=== PATIENT | female | born 1985 | race Caucasian/White ===

== ENCOUNTER 2017-03-19 19:40 | Emergency (ER) | payer OTHER ==
[2017-03-19 19:46] VITALS: BP 116/62; PULSE 117; TEMP 97.6; BMI 31.2
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
[2017-03-19] MEDS ORDERED: CYCLOBENZAPRINE HCL 10 MG TABLET (FP) PO ONE (20:40)
[2017-03-19] MEDS ORDERED: KETOROLAC TROMETHAMINE 60 MG/2 ML VIAL IM ONE (20:40)
== END 2017-03-19 20:51 | disposition home or self-care (01) ==
LOC: JERFT 19:40
PROC: 3E0233Z Introduction of Anti-inflammatory into Muscle, Percutaneous Approach (ICD-10-PCS; principal; 2017-03-19)
DX: S13.4XXA Sprain of ligaments of cervical spine, initial encounter (principal); V43.52XA Car driver injured in collision with other type car in traffic accident, initial encounter; Y92.410 Unspecified street and highway as the place of occurrence of the external cause; Y93.89 Activity, other specified
CPT/HCPCS: 84703; 96372; 99281-25

== ENCOUNTER 2017-05-21 18:12 | Emergency (ER) | payer OTHER ==
[2017-05-21 18:41] VITALS: BP 120/77; PULSE 108; TEMP 98.8; BMI 32.2
[2017-05-21] MEDS ORDERED: SODIUM CHLORIDE 1,000 ML IV STA (19:23)
[2017-05-21] MEDS ORDERED: PANTOPRAZOLE SODIUM 40 MG in SODIUM CHLORIDE 100 ML IVPB ONE (19:23)
[2017-05-21] MEDS ORDERED: ONDANSETRON 4 MG/2 ML VIAL IVPUSH ONE (19:24)
[2017-05-21] MEDS ORDERED: PANTOPRAZOLE SODIUM 100 ML IVPB ONE (19:50)
[2017-05-21] MEDS ORDERED: ONDANSETRON 4 MG/2 ML VIAL ONE (19:50)
[2017-05-21 19:56] LABS: BASOPHIL 0.4 % (0-2.0); EOSINOPHIL 1.3 % (0-4.5); MCH 30.3 pg (25.7-33.7); MCHC 32.9 g/dl (32.0-36.0); MEAN CELL VOLUME 92.1 fl (80-96); MEAN PLT VOLUME 8.1 fl (7.5-11.1); NEUTROPHILS 67.2 % (42.8-82.8); PLATELET COUNT 255 K/MM3 (134-434); RDW 14.1 % (11.6-15.6); WHITE BLOOD COUNT 11.1 K/mm3 (4.0-10.0)
[2017-05-21 20:03] LABS: URINE APPEARANCE CLOUDY; URINE BILIRUBIN NEGATIVE (NEGATIVE); URINE BLOOD NEGATIVE (NEGATIVE); URINE COLOR AMBER; URINE GLUCOSE (UA) NEGATIVE (NEGATIVE); URINE KETONE TRACE (NEGATIVE); URINE LEUK ESTERASE NEGATIVE (NEGATIVE); URINE NITRITE NEGATIVE (NEGATIVE); URINE PROTEIN NEGATIVE (NEGATIVE); URINE UROBILINOGEN NEGATIVE mg/dL (0.2-1.0)
[2017-05-21 20:20] LABS: ALBUMIN 3.4 g/dl (3.4-5.0); AMYLASE 48 U/L (25-115); ANION GAP 6 (8-16); BILIRUBIN,TOTAL 0.3 mg/dL (0.2-1.0); CALCIUM 8.8 mg/dL (8.5-10.1); CO2 28 mmol/L (21-32); CREATININE 0.8 mg/dL (0.55-1.02); GLUCOSE,RANDOM 112 mg/dL (74-106); SGPT/ALT 17 U/L (12-78); TOT PROT 7.3 g/dl (6.4-8.2)
[2017-05-21 20:21] LABS: ALK PHOS 73 U/L (45-117)
[2017-05-21 20:22] LABS: SGOT/AST 15 U/L (15-37)
--- NOTE | 2017-05-21 21:30 | PDOC ---
History of Present Illness - General Chief Complaint: Pain Stated Complaint: NAUSEA/VOMITING/FEVER Time Seen by Provider: 05/21/17 19:04 History Source: Patient Exam Limitations: No Limitations - History of Present Illness Travel History: No Initial Comments: 05/21/17 21:28 31yo Female patient with no significant past medical history presents to ED c/o fever (103.0), n/v, decrease appetite, and LLQ pain that comes and goes. Patient reports symptoms began this morning, she went to work and symptoms have been intermittent. LNMP: April 24. She denies diarrhea, back pain, dysuria, hematuria, constipation, or any other complaints at this time. Timing/Duration: reports: intermittent Quality: reports: mild, cramping Abdominal Pain Onset Location: reports: LLQ. denies: RUQ, LUQ, RLQ, epigastric , periumbilical, suprapubic, generalized abdomen, flank, unknown, other Pain Radiation: denies: no radiation, RUQ, LUQ, RLQ, LLQ, epigastric, periumbilical, flank, groin, scapula, shoulder, chest, back, other Activities at Onset: reports: no specific activity Treatment Prior to Arrive: worse with: analgesics, antacids, cold pack, heat, laxative, enema, other Aggravating Factors: worse with: None, Defecation, Eating, Emotional upset, Exertion, [place], Movement, Voiding, Change in position Alleviating Factors: worse with: None, Belching, Shallow Breathing, Defecation, Eating, Holding Breath, Passing Gas, Change in Position, Rest, Voiding, Vomiting Past History - Travel Traveled outside of the country in the last 30 days: No Close contact w/someone who was outside of country & ill: No - Past Medical History Allergies/Adverse Reactions: Allergies Allergy/AdvReac Type Severity Reaction Status Date / Time No Known Drug Allergies Allergy Verified 05/21/17 18:39 SEAFOOD Allergy Difficulty Uncoded 05/21/17 18:39 Breathing Home Medications: Ambulatory Orders NK [No Known Home Medication] 05/21/17 Anemia: Yes Kidney Stones: Yes Suicide Attempt (Hx): No - Reproductive History Is Patient Now?: No - Immunization History Immunization Up to Date: Yes - Psycho/Social/Smoking Cessation Hx Anxiety: No Suicidal Ideation: No Smoking History: Never smoked Have you smoked in the past 12 months: No Information on smoking cessation initiated: No Hx Alcohol Use: No Drug/Substance Use Hx: No Substance Use Type: None Abd/GI Specific PMHX - Complaint Specific PMHX Colitis: No Diverticulitis: No Gall Bladder Disease: No GERD: No Hepatitis: No Irritable Bowel Synd (IBS): No Pancreatitis: No GI Ulcer Disease: No Review of Systems - Review of Systems Able to Perform ROS?: Yes Is the patient limited [place] proficient: No Constitutional: Yes: Fever. No: Chills ABD/GI: Yes: Nausea, Vomiting, Abdominal cramping, Other (Decreased appetite). No: Constipated, Diarrhea, Poor Appetite, Poor Fluid Intake : No: Dysuria, Hematuria Musculoskeletal: No: Back Pain Integumentary: No: Bruising, Erythema, Rash, Sweating Neurological: No: Headache, Seizure, Ataxia, Dizziness All Other Systems: Reviewed and Negative *Physical Exam - Vital Signs Last Vital Signs Temp Pulse Resp BP Pulse Ox 98.8 F 108 H 18 120/77 96 05/21/17 18:40 05/21/17 18:40 05/21/17 18:40 05/21/17 18:40 05/21/17 18:40 - Physical Exam General Appearance: Yes: Nourished, Appropriately Dressed. No: Apparent Distress, Mild Distress, Moderate Distress, Severe Distress Respiratory/Chest: positive: Lungs Clear, Normal Breath Sounds. negative: Chest Tender, Respiratory Distress, Accessory Muscle Use, Labored Respiration, Rapid RR, Crackles, Rales, Stridor, Wheezing Cardiovascular: positive: Regular Rhythm, Regular Rate Gastrointestinal/Abdominal: positive: Normal Bowel Sounds, Soft. negative: Increased Bowel Sounds, Distended, Guarding, Rebound, Tenderness Musculoskeletal: positive: Normal Inspection. negative: CVA Tenderness, Decreased Range of Motion Extremity: positive: Normal Capillary Refill, Normal Inspection, Normal Range of Motion. negative: Pedal Edema, Swelling, Calf Tenderness, Erythema, Inflammation Integumentary: positive: Normal Color, Dry, Warm. negative: Rash, Swelling, Bruising Neurologic: positive: barrel turner II-XII NML intact, Fully Oriented, Alert, Normal Mood/ Affect, Normal Response, Motor Strength 5/5 ED Treatment Course - LABORATORY CBC & Chemistry Diagram: 05/21/17 19:40 05/21/17 19:40 - ADDITIONAL ORDERS Additional order review: Laboratory Results 05/21/17 05/21/17 05/21/17 20:00 19:42 19:40 Sodium 137 Potassium 3.8 Chloride 103 Carbon Dioxide 28 Anion Gap 6 L BUN 11 Creatinine 0.8 Creat Clearance w eGFR > 60 Random Glucose 112 H D Calcium 8.8 Total Bilirubin 0.3 D AST 15 D ALT 17 Alkaline Phosphatase 73 Total Protein 7.3 Albumin 3.4 Total Amylase 48 Lipase 89 Urine Color Radha Urine Appearance Cloudy Urine pH 5.0 Urine Protein Negative Urine Glucose (UA) Negative Urine Ketones Trace H Urine Blood Negative Urine Nitrite Negative Urine Bilirubin Negative Urine Urobilinogen Negative Ur Leukocyte Esterase Negative Urine HCG, Qual Negative 05/21/17 19:40 RBC 4.64 MCV 92.1 MCHC 32.9 RDW 14.1 MPV 8.1 Neutrophils % 67.2 Lymphocytes % 26.9 Monocytes % 4.2 Eosinophils % 1.3 Basophils % 0.4 - Medications Given in the ED: ED Medications Discontinued Medications Generic Name Dose Route Start Last Admin Trade Name Alvaroq PRN Reason Stop Dose Admin Pantoprazole Sodium 40 mg/ 100 mls @ 200 mls/hr 05/21/17 19:23 05/21/17 19:59 Sodium Chloride IVPB 05/21/17 19:52 200 mls/hr ONCE ONE Administration Sodium Chloride 1,000 mls @ 1,000 mls/hr 05/21/17 19:23 05/21/17 19:59 Normal Saline - IV 05/21/17 20:22 1,000 mls/hr ASDIR STA Administration Ondansetron HCl 4 mg 05/21/17 19:24 05/21/17 19:59 Zofran Injection IVPUSH 05/21/17 19:25 4 mg ONCE ONE Administration Medical Decision Making - Medical Decision Making 05/21/17 21:32 Patient reports she feels much better and would like to go home, she states she has work at 5am. Patient reports improvement in symptoms. Patient teaching done on worsening or change in symptoms to return or go to nearest ED. *DC/Admit/Observation/Transfer Diagnosis at time of Disposition: Nausea & vomiting Qualifiers: Vomiting type: unspecified Vomiting Intractability: non-intractable Qualified Code(s): R11.2 - Nausea with vomiting, unspecified - Discharge Dispostion Disposition: HOME Condition at time of disposition: Improved Admit: No - Patient Instructions Printed Discharge Instructions: DI for Vomiting -- Adult Additional Instructions: FOLLOW UP WITH YOUR PRIMARY CARE PROVIDER THIS WEEK. CALL TO SCHEDULE APPOINTMENT. RETURN IF SYMPTOMS WORSEN OR ANY CONCERNS FOR FURTHER EVALUATION DISCUSSED. Print Language: TURKMEN
== END 2017-05-21 21:47 | disposition home or self-care (01) ==
LOC: JER 18:12
PROC: 3E033GC Introduction of Other Therapeutic Substance into Peripheral Vein, Percutaneous Approach (ICD-10-PCS; principal; 2017-05-21)
PROC: 3E033GC Introduction of Other Therapeutic Substance into Peripheral Vein, Percutaneous Approach (ICD-10-PCS; 2017-05-21)
DX: R11.2 Nausea with vomiting, unspecified (principal)
CPT/HCPCS: 36415; 80053; 81003; 82150; 83690; 84703; 85025; 96365; 96375; 99283-25

== ENCOUNTER 2017-07-05 16:16 | Emergency (ER) | payer SELFPAY ==
[2017-07-05 16:30] VITALS: BP 121/70; PULSE 106; TEMP 98.8; BMI 33.2
--- NOTE | 2017-07-05 17:19 | PDOC ---
History of Present Illness - General History Source: Patient Exam Limitations: No Limitations - History of Present Illness Initial Comments: 07/05/17 17:33 Patient is a 31-year-old female with no past medical history who presents to the emergency department today complaining of lightheadedness, nausea, and vomiting. Patient states that she has been nauseous and vomiting since Monday. She's been unable to keep anything down including water. Today she felt extremely weak because she has not been eating as well due to her nausea. She came to the emergency department for evaluation. Denies abdominal pain, diarrhea , constipation, fevers, chills, frequency, urgency, hematuria and dysuria. LMP <Leena Martinez - Last Filed: 07/05/17 19:38> <Ivy De La Rosa - Last Filed: 07/05/17 23:45> - General Chief Complaint: Lightheaded Stated Complaint: NAUSEA/VOMITING Time Seen by Provider: 07/05/17 17:19 Past History - Travel Traveled outside of the country in the last 30 days: No Close contact w/someone who was outside of country & ill: No - Past Medical History Anemia: Yes Kidney Stones: Yes - Immunization History Immunization Up to Date: Yes - Suicide/Smoking/Psychosocial Hx Smoking History: Never smoked Have you smoked in the past 12 months: No Hx Alcohol Use: No Drug/Substance Use Hx: No Substance Use Type: None <Leena Martinez - Last Filed: 07/05/17 19:38> <Ivy De La Rosa - Last Filed: 07/05/17 23:45> - Past Medical History Allergies/Adverse Reactions: Allergies Allergy/AdvReac Type Severity Reaction Status Date / Time No Known Drug Allergies Allergy Verified 07/05/17 16:30 SEAFOOD Allergy Difficulty Uncoded 07/05/17 16:30 Breathing Home Medications: Ambulatory Orders Meclizine HCl [Antivert -] 25 mg PO TID PRN #21 tablet 07/05/17 Ondansetron [Zofran Odt -] 4 mg SL Q6H PRN #24 od.tablet 07/05/17 Review of Systems - Review of Systems Able to Perform ROS?: Yes Comments:: 07/05/17 17:34 CONSTITUTIONAL: Absent: fever, chills, diaphoresis, generalized weakness, malaise, loss of appetite HEENT: Absent: rhinorrhea, nasal congestion, throat pain, throat swelling, difficulty swallowing, mouth swelling, ear pain, eye pain, visual Changes CARDIOVASCULAR: Absent: chest pain, loss of consciousness, palpitations, irregular heart rate, peripheral edema RESPIRATORY: Absent: cough, shortness of breath, dyspnea with exertion, orthopnea, wheezing, stridor, hemoptysis GASTROINTESTINAL: Present: nausea, vomiting. Absent: abdominal pain, abdominal distension, diarrhea, constipation, melena, hematochezia GENITOURINARY: Absent: dysuria, frequency, urgency, hesitancy, hematuria, flank pain, genital pain MUSCULOSKELETAL: Absent: myalgia, arthralgia, joint swelling SKIN: Absent: rash, itching, pallor HEMATOLOGIC/IMMUNOLOGIC: Absent: easy bleeding, easy bruising, lymphadenopathy, frequent infections ENDOCRINE: Absent: unexplained weight gain, unexplained weight loss, heat intolerance, cold intolerance NEUROLOGIC: Present: Lightheaded Absent: headache, focal weakness or paresthesias, dizziness , unsteady gait, seizure, mental status changes, bladder or bowel incontinence PSYCHIATRIC: Absent: anxiety, depression, suicidal or homicidal ideation, hallucinations. Is the patient limited Icelandic proficient: No <Leena Martinez - Last Filed: 07/05/17 19:38> *Physical Exam - Vital Signs Last Vital Signs Temp Pulse Resp BP Pulse Ox 98.8 F 106 H 20 121/70 99 07/05/17 16:27 07/05/17 16:27 07/05/17 16:27 07/05/17 16:27 07/05/17 16:27 - Physical Exam Comments: 07/05/17 17:35 GENERAL: Well developed, well nourished. Awake and alert. No acute distress. HEENT: Normocephalic, atraumatic. PERRLA, EOMI. No conjunctival pallor. Sclera are non- icteric. Moist mucous membranes. Oropharynx is clear. NECK: Supple. Full ROM. No JVD. Carotid pulses 2+ and symmetric, without bruits. No thyromegaly. No lymphadenopathy. CARDIOVASCULAR: Regular rate and rhythm. No murmurs, rubs, or gallops. Distal pulses are 2+ and symmetric. PULMONARY: No evidence of respiratory distress. Lungs clear to auscultation bilaterally. No wheezing, rales or rhonchi. ABDOMINAL: Soft. Non-tender. Non-distended. No rebound or guarding. No organomegaly. Normoactive bowel sounds. MUSCULOSKELETAL Normal range of motion at all joints. No bony deformities or tenderness. No CVA tenderness. EXTREMITIES: No cyanosis. No clubbing. No edema. No calf tenderness. SKIN: Warm and dry. Normal capillary refill. No rashes. No jaundice. NEUROLOGICAL: Alert, awake, appropriate. Cranial nerves 2-12 intact. No deficits to light touch and temperature in face, upper extremities and lower extremities. No motor deficits in the in face, upper extremities and lower extremities. Normoreflexic in the upper and lower extremities. Normal speech. Toes are down- going bilaterally. Gait is normal without ataxia. PSYCHIATRIC: Cooperative. Good eye contact. Appropriate mood and affect. <Leena Martinez - Last Filed: 07/05/17 19:38> - Vital Signs Last Vital Signs Temp Pulse Resp BP Pulse Ox 98.8 F 106 H 20 121/70 99 07/05/17 16:27 07/05/17 16:27 07/05/17 16:27 07/05/17 16:27 07/05/17 16:27 <Ivy De La Rosa - Last Filed: 07/05/17 23:45> ED Treatment Course - LABORATORY CBC & Chemistry Diagram: 07/05/17 18:15 07/05/17 18:15 <Leena Martinez - Last Filed: 07/05/17 19:38> - LABORATORY CBC & Chemistry Diagram: 07/05/17 18:15 07/05/17 18:15 - ADDITIONAL ORDERS Additional order review: Laboratory Results 07/05/17 07/05/17 07/05/17 19:50 18:15 18:15 PT with INR INR Sodium 138 Potassium 3.7 Chloride 103 Carbon Dioxide 29 Anion Gap 6 L BUN 6 L D Creatinine 0.8 Creat Clearance w eGFR > 60 Random Glucose 86 D Calcium 8.8 Total Bilirubin 0.5 D AST 9 L D ALT 18 Alkaline Phosphatase 87 Total Protein 7.3 Albumin 3.5 Lipase 105 Urine Color Yellow Urine Appearance Slcloudy Urine pH 6.0 Ur Specific [place] 1.020 Urine Protein Negative Urine Glucose (UA) Negative Urine Ketones Negative Urine Blood Negative Urine Nitrite Negative Urine Bilirubin Negative Urine Urobilinogen 2.0 H Urine HCG, Qual Negative 07/05/17 18:15 PT with INR 13.30 H INR 1.20 H Sodium Potassium Chloride Carbon Dioxide Anion Gap BUN Creatinine Creat Clearance w eGFR Random Glucose Calcium Total Bilirubin AST ALT Alkaline Phosphatase Total Protein Albumin Lipase Urine Color Urine Appearance Urine pH Ur Specific [place] Urine Protein Urine Glucose (UA) Urine Ketones Urine Blood Urine Nitrite Urine Bilirubin Urine Urobilinogen Urine HCG, Qual 07/05/17 18:15 RBC 4.64 MCV 91.7 MCHC 33.6 RDW 13.1 MPV 7.8 Neutrophils % 61.1 Lymphocytes % 30.3 Monocytes % 7.0 Eosinophils % 1.0 Basophils % 0.6 - Medications Given in the ED: ED Medications Discontinued Medications Generic Name Dose Route Start Last Admin Trade Name Freq PRN Reason Stop Dose Admin Sodium Chloride 1,000 mls @ 1,000 mls/hr 07/05/17 17:21 07/05/17 18:25 Normal Saline - IV 07/05/17 18:20 1,000 mls/hr ASDIR STA Administration Meclizine HCl 50 mg 07/05/17 21:19 07/05/17 21:34 Antivert - PO 07/05/17 21:20 50 mg ONCE ONE Administration Ondansetron HCl 4 mg 07/05/17 17:21 07/05/17 18:25 Zofran Injection IVPUSH 07/05/17 17:22 4 mg ONCE ONE Administration Ondansetron HCl 4 mg 07/05/17 21:19 07/05/17 21:34 Zofran Injection IVPUSH 07/05/17 21:20 4 mg ONCE ONE Administration <Ivy De La Rosa - Last Filed: 07/05/17 23:45> Medical Decision Making - Medical Decision Making 07/05/17 19:37 Patient is a 31-year-old female with no past medical history who presents to the emergency department today complaining of lightheadedness, nausea, and vomiting. Patient most likely has a viral syndrome and is lightheaded due to her recurrent nausea and vomiting. Neuro exam is normal, Pt. is tachycardic in the 100's, patient is afebrile. Will hydrate and give Zofran for the nausea. Reevaluate 1.CBC, CMP, lipase, PT/INR, UA, UC, urine 2.IV fluids, Zofran 3.reevaluate 07/05/17 18:25 WBC is slightly elevated. Most likely reflexive due to the vomiting. All other labs are within normal limits. 07/05/17 19:00 Fluids her still running at this time patient reports that she is feeling a bit better we will give signout to [facility] SHE[facility] OPERATOR Rj for further evaluation. If she feels better after fluids and her test is normal we'll discharge home <Leena Martinez - Last Filed: 07/05/17 19:38> *DC/Admit/Observation/Transfer <Leena Martinez - Last Filed: 07/05/17 19:38> - Discharge Dispostion Admit: No <Ivy De La Rosa - Last Filed: 07/05/17 23:45> Diagnosis at time of Disposition: Vertigo - Discharge Dispostion Disposition: HOME Condition at time of disposition: Improved - Prescriptions Prescriptions: Meclizine HCl [Antivert -] 25 mg PO TID PRN #21 tablet PRN Reason: Dizziness Ondansetron [Zofran Odt -] 4 mg SL Q6H PRN #24 od.tablet PRN Reason: Nausea - Referrals Referrals: Montez Kitchen MD [Staff Physician] - - Patient Instructions Printed Discharge Instructions: DI for Vertigo Additional Instructions: Follow up with Dr. Kitchen (Neurology) within one week. Call to schedule appointment. Take medications as prescribed. Get rest. Eat and drink plenty fluids. No work x 3 days. Print Language: ARMENIAN - Post Discharge Activity Forms/Work/School Notes: Back to Work
[2017-07-05] MEDS ORDERED: ONDANSETRON 4 MG/2 ML VIAL IVPUSH ONE ×2 (17:21→21:19)
[2017-07-05] MEDS ORDERED: SODIUM CHLORIDE 1,000 ML IV STA ×2 (17:21→23:21)
[2017-07-05] MEDS ORDERED: ONDANSETRON 4 MG/2 ML VIAL ONE ×2 (18:19→21:31)
[2017-07-05 18:23] LABS: BASOPHIL 0.6 % (0-2.0); MCH 30.8 pg (25.7-33.7); MCHC 33.6 g/dl (32.0-36.0); MEAN CELL VOLUME 91.7 fl (80-96); MEAN PLT VOLUME 7.8 fl (7.5-11.1); NEUTROPHILS 61.1 % (42.8-82.8); PLATELET COUNT 257 K/MM3 (134-434); RDW 13.1 % (11.6-15.6); WHITE BLOOD COUNT 10.5 K/mm3 (4.0-10.0)
[2017-07-05 18:39] LABS: INR 1.2 (0.82-1.09); PROTHROMBIN TIME (PATIENT) 13.3 SEC (9.98-11.88)
--- NOTE | 2017-07-05 18:47 | PDOC ---
*Physical Exam - Vital Signs Last Vital Signs Temp Pulse Resp BP Pulse Ox 98.8 F 106 H 20 121/70 99 07/05/17 16:27 07/05/17 16:27 07/05/17 16:27 07/05/17 16:27 07/05/17 16:27 - Physical Exam Comments: 07/05/17 18:47 The patient was examined by [MEGAN Martinez] under my direct supervision. I personally evaluated the patient. I concur with the above findings and the plan of care. ED Treatment Course - LABORATORY CBC & Chemistry Diagram: 07/05/17 18:15 07/05/17 18:15 - ADDITIONAL ORDERS Additional order review: 07/05/17 18:15 RBC 4.64 MCV 91.7 MCHC 33.6 RDW 13.1 MPV 7.8 Neutrophils % 61.1 Lymphocytes % 30.3 Monocytes % 7.0 Eosinophils % 1.0 Basophils % 0.6 - Medications Given in the ED: ED Medications Discontinued Medications Generic Name Dose Route Start Last Admin Trade Name Freq PRN Reason Stop Dose Admin Sodium Chloride 1,000 mls @ 1,000 mls/hr 07/05/17 17:21 07/05/17 18:25 Normal Saline - IV 07/05/17 18:20 1,000 mls/hr ASDIR STA Administration Ondansetron HCl 4 mg 07/05/17 17:21 07/05/17 18:25 Zofran Injection IVPUSH 07/05/17 17:22 4 mg ONCE ONE Administration *DC/Admit/Observation/Transfer Diagnosis at time of Disposition: Vertigo - Discharge Dispostion Disposition: HOME - Prescriptions Prescriptions: Meclizine HCl [Antivert -] 25 mg PO TID PRN #21 tablet PRN Reason: Dizziness Ondansetron [Zofran Odt -] 4 mg SL Q6H PRN #24 od.tablet PRN Reason: Nausea - Referrals Referrals: Montez Kitchen MD [Staff Physician] - - Patient Instructions Printed Discharge Instructions: DI for Vertigo Additional Instructions: Follow up with Dr. Kitchen (Neurology) within one week. Call to schedule appointment. Take medications as prescribed. Get rest. Eat and drink plenty fluids. No work x 3 days. Print Language: KUWAITI - Post Discharge Activity Forms/Work/School Notes: Back to Work
[2017-07-05 18:55] LABS: ALBUMIN 3.5 g/dl (3.4-5.0); ANION GAP 6 (8-16); BILIRUBIN,TOTAL 0.5 mg/dL (0.2-1.0); CALCIUM 8.8 mg/dL (8.5-10.1); CO2 29 mmol/L (21-32); CREATININE 0.8 mg/dL (0.55-1.02); GLUCOSE,RANDOM 86 mg/dL (74-106); SGOT/AST 9 U/L (15-37); SGPT/ALT 18 U/L (12-78); TOT PROT 7.3 g/dl (6.4-8.2)
[2017-07-05 18:56] LABS: ALK PHOS 87 U/L (45-117)
[2017-07-05 20:00] LABS: URINE APPEARANCE SLCLOUDY; URINE BILIRUBIN NEGATIVE (NEGATIVE); URINE BLOOD NEGATIVE (NEGATIVE); URINE COLOR YELLOW; URINE GLUCOSE (UA) NEGATIVE (NEGATIVE); URINE KETONE NEGATIVE (NEGATIVE); URINE LEUK ESTERASE NEGATIVE (NEGATIVE); URINE NITRITE NEGATIVE (NEGATIVE); URINE PROTEIN NEGATIVE (NEGATIVE)
[2017-07-05] MEDS ORDERED: MECLIZINE HCL 25 MG TABLET (FP) PO ONE (21:19)
[2017-07-05] MEDS ORDERED: MECLIZINE HCL 25 MG TABLET (FP) ONE (21:30)
[2017-07-05] MEDS ORDERED: METOCLOPRAMIDE HCL INJECTION 10 MG/2 ML VIAL IVPB ONE (23:22)
== END 2017-07-06 00:01 | disposition home or self-care (01) ==
LOC: JER 16:16
PROC: 3E033TZ Introduction of Destructive Agent into Peripheral Vein, Percutaneous Approach (ICD-10-PCS; principal; 2017-07-05)
PROC: 3E033GC Introduction of Other Therapeutic Substance into Peripheral Vein, Percutaneous Approach (ICD-10-PCS; 2017-07-05)
DX: R11.2 Nausea with vomiting, unspecified (principal)
CPT/HCPCS: 36415; 80053; 81003; 83690; 84703; 85025; 85610; 87086; 87186; 99281-25

== ENCOUNTER 2018-05-24 18:44 | Emergency (ER) | payer SELFPAY ==
[2018-05-24 18:53] VITALS: BP 105/60; PULSE 107; TEMP 98.3; BMI 32.2
--- NOTE | 2018-05-24 20:07 | PDOC ---
Attending Attestation - HPI HPI: 05/24/18 20:45 Patient is a 32 year old female with no significant past medical history who presents to the ED with complaints of a syncopal episode that occurred earlier today. Patient reports sitting at home when she suddenly began to experience increased warmth as well as associated decreased hearing stating her hearing faded before losing consciousness. She reports not coming to the ED after regaining consciousness due to experiencing general body weakness. Patient reported symptoms returning this evening, prompting her to come into the ED for further evaluation. Denies chest pain, Sob. Denies chills. Denies head trauma, vision changes. Denies contact with sick individuals out of state travelling. Denies dysuria, hematuria. Denies diarrhea, constipation. Denies any other symptoms. Allergies: Seafood. Social history: No smoking. No alcohol. No illicit drugs. Surgical history: None PMD: None <Víctor Roque - Last Filed: 05/24/18 20:45> - Resident Resident Name: Devorah Camacho - ED Attending Attestation I have performed the following: I have examined & evaluated the patient, The case was reviewed & discussed with the resident, I agree w/resident's findings & plan, Exceptions are as noted - Physicial Exam PE: GENERAL: Awake, alert, and fully oriented, in no acute distress HEAD: No signs of trauma EYES: PERRLA, EOMI, sclera anicteric, conjunctiva clear ENT: Auricles normal inspection, hearing grossly normal, nares patent, oropharynx clear without exudates. Moist mucosa NECK: Normal ROM, supple, no lymphadenopathy, JVD, or masses LUNGS: Breath sounds equal, clear to auscultation bilaterally. No wheezes, and no crackles HEART: Regular rate and rhythm, normal S1 and S2, no murmurs, rubs or gallops ABDOMEN: Soft, nontender, normoactive bowel sounds. No guarding, no rebound. No masses EXTREMITIES: Normal range of motion, no edema. No clubbing or cyanosis. No cords, erythema, or tenderness NEUROLOGICAL: Cranial nerves II through XII grossly intact. Normal speech, normal gait SKIN: Warm, Dry, normal turgor, no rashes or lesions noted. - Medical Decision Making Pt with syncopal event, then a near syncopal event afterwards. Both occurred unprovoked (not upset, not lightheaded). Noted to have tachycardia on arrival in ED and c/o chest pain earlier today. Will work up for poss PE. <Margie Goff - Last Filed: 05/25/18 01:39>
--- NOTE | 2018-05-24 20:15 | PDOC ---
History of Present Illness - General History Source: Patient Exam Limitations: No Limitations - History of Present Illness Initial Comments: 05/24/18 20:05 Pt is a 32yo f with pmh of anemia presenting to ED because of a syncopal episode. Pt said around 2pm today, she was watching TV when she started to "get hot, sounds were distant" and started experiencing tunnel vision. Pt said the episode was witnessed by her father who said she was unconscious for "a couple minutes". According to pt, no one told her she was having a seizure and she did not lose control of bowel/bladder. She did say that she was confused when she came to. Pt says she has been feeling stressed lately. She admits to feeling anxious, dizzy, feeling nauseous, short of breath, chest pain due to anxiety. Pt says for the past couple of days she hasn't been eating anything and she has been throwing up. She denies blood in the vomit. Pt says she recently came back from [place] which is about a [address] She denies fever, chills, numbness, tingling, abdominal pain, vaginal bleeding, vaginal discharge, dysuria , diarrhea, constipation. Pt was taking Depo shot but has stopped. Last dose was in January. PMH: anemia PSH: lithotripsy Meds: none Allergies: seafood Social: denies tobacco, alcohol, illicit drug use 05/24/18 20:15 <Devorah Camacho - Last Filed: 05/24/18 20:05> <Margie Goff - Last Filed: 05/24/18 23:45> - General Chief Complaint: Syncope/Near Syncope Stated Complaint: SYNCOPE/NEAR SYNCOPE Time Seen by Provider: 05/24/18 19:43 Past History - Past Medical History Anemia: Yes COPD: No Kidney Stones: Yes - Immunization History Immunization Up to Date: Yes - Suicide/Smoking/Psychosocial Hx Smoking History: Never smoked Have you smoked in the past 12 months: No Information on smoking cessation initiated: No Hx Alcohol Use: No Drug/Substance Use Hx: No Substance Use Type: None <Devorah Camacho - Last Filed: 05/24/18 20:05> <Margie Goff - Last Filed: 05/24/18 23:45> - Past Medical History Allergies/Adverse Reactions: Allergies Allergy/AdvReac Type Severity Reaction Status Date / Time No Known Drug Allergies Allergy Verified 05/24/18 18:46 SEAFOOD Allergy Difficulty Uncoded 05/24/18 18:46 Breathing Home Medications: Ambulatory Orders NK [No Known Home Medication] 05/24/18 *Physical Exam - Vital Signs Last Vital Signs Temp Pulse Resp BP Pulse Ox 98.3 F 107 H 18 105/60 100 05/24/18 18:48 05/24/18 18:48 05/24/18 18:48 05/24/18 18:48 05/24/18 18:48 <Devorah Camacho - Last Filed: 05/24/18 20:05> - Vital Signs Last Vital Signs Temp Pulse Resp BP Pulse Ox 98.3 F 107 H 18 105/60 100 05/24/18 18:48 05/24/18 18:48 05/24/18 18:48 05/24/18 18:48 05/24/18 18:48 <Margie Goff - Last Filed: 05/24/18 23:45> ED Treatment Course - LABORATORY CBC & Chemistry Diagram: 05/24/18 20:45 05/24/18 20:45 - ADDITIONAL ORDERS Additional order review: Laboratory Results 05/24/18 05/24/18 05/24/18 20:45 20:45 20:15 Sodium 144 Potassium 3.8 Chloride 109 H Carbon Dioxide 26 Anion Gap 9 BUN 12 Creatinine 0.8 Creat Clearance w eGFR > 60 Random Glucose 75 Calcium 8.7 Total Bilirubin 0.2 AST 14 L ALT 23 Alkaline Phosphatase 72 Troponin I < 0.02 Total Protein 7.3 Albumin 3.6 Urine HCG, Qual Negative 05/24/18 20:45 RBC 4.37 MCV 90.4 MCHC 33.9 RDW 13.0 MPV 8.1 Neutrophils % 55.2 Lymphocytes % 35.4 Monocytes % 7.9 Eosinophils % 1.1 Basophils % 0.4 - Medications Given in the ED: ED Medications Discontinued Medications Generic Name Dose Route Start Last Admin Trade Name Freq PRN Reason Stop Dose Admin Sodium Chloride 1,000 mls @ 1,000 mls/hr 05/24/18 20:59 05/24/18 21:08 Normal Saline - IV 05/24/18 21:58 1,000 mls/hr ASDIR STA Administration Ondansetron HCl 4 mg 05/24/18 20:59 05/24/18 21:08 Zofran Injection IVPB 05/24/18 21:00 4 mg ONCE ONE Administration <Margie Goff - Last Filed: 05/24/18 23:45> *DC/Admit/Observation/Transfer <Devorah Camacho - Last Filed: 05/24/18 20:05> - Discharge Dispostion Decision to Admit order: No <Margie Goff - Last Filed: 05/24/18 23:45> Diagnosis at time of Disposition: Syncope Qualifiers: Syncope type: unspecified Qualified Code(s): R55 - Syncope and collapse - Discharge Dispostion Disposition: HOME Condition at time of disposition: Stable
[2018-05-24 20:58] LABS: BASO % 0.4 % (0-2.0); EOS % 1.1 % (0-4.5); HEMATOCRIT 39.5 % (32.4-45.2); HEMOGLOBIN 13.4 GM/dL (10.7-15.3); LYMPH % 35.4 % (8-40); MCH 30.7 pg (25.7-33.7); MCHC 33.9 g/dl (32.0-36.0); MEAN CELL VOLUME 90.4 fl (80-96); MEAN PLT VOLUME 8.1 fl (7.5-11.1); MONO % 7.9 % (3.8-10.2); NEUT % 55.2 % (42.8-82.8); PLATELET COUNT 238 K/MM3 (134-434); RBC 4.37 M/mm3 (3.60-5.2); WHITE BLOOD COUNT 10.1 K/mm3 (4.0-10.0)
[2018-05-24] MEDS ORDERED: SODIUM CHLORIDE 1,000 ML IV STA (20:59)
[2018-05-24] MEDS ORDERED: ONDANSETRON 4 MG/2 ML VIAL IVPB ONE (20:59)
[2018-05-24] MEDS ORDERED: ONDANSETRON 4 MG/2 ML VIAL ONE (21:03)
[2018-05-24 21:20] LABS: ALBUMIN 3.6 g/dl (3.4-5.0); ALK PHOS 72 U/L (45-117); ANION GAP 9 MMOL/L (8-16); BILIRUBIN,TOTAL 0.2 mg/dL (0.2-1.0); BLOOD UREA NITROGEN 12 mg/dL (7-18); CALCIUM 8.7 mg/dL (8.5-10.1); CHLORIDE 109 mmol/L (98-107); CO2 26 mmol/L (21-32); CREATININE 0.8 mg/dL (0.55-1.02); GLUCOSE,RANDOM 75 mg/dL (74-106); SGPT/ALT 23 U/L (12-78); SODIUM 144 mmol/L (136-145); TOT PROT 7.3 g/dl (6.4-8.2)
[2018-05-24 21:26] LABS: POTASSIUM 3.8 mmol/L (3.5-5.1); SGOT/AST 14 U/L (15-37)
--- NOTE | 2018-05-25 12:02 | EKG ---
Test Reason : Blood Pressure : / mmHG Vent. Rate : 071 BPM Atrial Rate : 071 BPM P-R Int : 124 ms QRS Dur : 070 ms QT Int : 372 ms P-R-T Axes : 037 024 026 degrees QTc Int : 404 ms NORMAL SINUS RHYTHM NORMAL ECG WHEN COMPARED WITH ECG OF 04-APR-2015 16:59, NO SIGNIFICANT CHANGE WAS FOUND Confirmed by PRASANNA JANSEN MD ([id number]) on 05/25/2018 12:01:47 PM Referred By: Confirmed By:PRASANNA JANSEN MD
== END 2018-05-24 23:49 | disposition home or self-care (01) ==
LOC: JER 18:44
PROC: 3E033GC Introduction of Other Therapeutic Substance into Peripheral Vein, Percutaneous Approach (ICD-10-PCS; principal; 2018-05-24)
DX: R55 Syncope and collapse (principal)
CPT/HCPCS: 36415; 71275-TC; 80053; 84484; 84703; 85025; 93005; 93010; 99283-25; J7030

== ENCOUNTER 2018-10-29 19:48 | Emergency (ER) | payer SELFPAY ==
[2018-10-29 19:54] VITALS: BP 116/55; PULSE 75; TEMP 98.4; BMI 31.2
--- NOTE | 2018-10-29 19:54 | PDOC ---
Rapid Medical Evaluation Chief Complaint: Cold Symptoms Time Seen by Provider: 10/29/18 19:51 Medical Evaluation: Allergies Allergy/AdvReac Type Severity Reaction Status Date / Time No Known Drug Allergies Allergy Verified 05/24/18 18:46 SEAFOOD Allergy Difficulty Uncoded 05/24/18 18:46 Breathing 10/29/18 19:51 I have performed a brief in-person evaluation of the patient. The patient presents with a chief complaint of: nausea, bodyaches and headache today. Reports vomiting x 5 times today Denies fever or chills Pertinent physical exam findings. NAD clear and unlabored breathing +bowel sounds, non tender abdomen I have ordered the following. urine , urinalysis The patient will proceed to the ED for further evaluation.
[2018-10-29 20:10] LABS: URINE APPEARANCE SLCLOUDY; URINE BILIRUBIN NEGATIVE (<2.0 mg/dL); URINE COLOR YELLOW; URINE GLUCOSE (UA) NEGATIVE (NEGATIVE); URINE KETONE TRACE (NEGATIVE); URINE LEUK ESTERASE 1+ (NEGATIVE); URINE NITRITE NEGATIVE (NEGATIVE); URINE PROTEIN 1+ (NEGATIVE)
[2018-10-29 20:12] LABS: HCG,QUALITATIVE URINE Negative
[2018-10-29 20:31] LABS: EPI CELLS MODERATE /HPF (FEW); URINE MUCUS MODERATE
--- NOTE | 2018-10-29 20:37 | PDOC ---
History of Present Illness - General Chief Complaint: Cold Symptoms Stated Complaint: FLU SYX Time Seen by Provider: 10/29/18 19:51 - History of Present Illness Initial Comments: 10/29/18 20:36 32-year-old female without comorbidities presents for evaluation of subjective fever chills night sweats bodyaches and Past History - Past Medical History Allergies/Adverse Reactions: Allergies Allergy/AdvReac Type Severity Reaction Status Date / Time No Known Drug Allergies Allergy Verified 10/29/18 19:54 SEAFOOD Allergy Difficulty Uncoded 10/29/18 19:54 Breathing Home Medications: Ambulatory Orders Nitrofurantoin Monohyd/M-Cryst [Macrobid -] 100 mg PO BID #14 capsule 10/29/18 Anemia: Yes COPD: No Kidney Stones: Yes - Immunization History Immunization Up to Date: Yes - Suicide/Smoking/Psychosocial Hx Smoking History: Never smoked Have you smoked in the past 12 months: No Information on smoking cessation initiated: No Hx Alcohol Use: No Drug/Substance Use Hx: No Substance Use Type: None Review of Systems - Review of Systems Constitutional: Yes: See HPI, Chills, Diaphoresis, Fever, Malaise, Night Sweats HEENTM: Yes: Nose Congestion *Physical Exam - Vital Signs Last Vital Signs Temp Pulse Resp BP Pulse Ox 98.4 F 75 16 116/55 L 100 10/29/18 19:50 10/29/18 19:50 10/29/18 19:50 10/29/18 19:50 10/29/18 19:50 - Physical Exam Comments: 10/29/18 20:36 HEAD: NC/AT EYES: Conjuntiva clear Ears: Canals and TM's normal NOSE: No d/c THROAT: Moist mucous membrances, oral pharanx clear, uvula midline NECK: Supple without adenopathy CARDIAC: S1 S2 LUNGS: CTA Full and Equal breath sounds ABDOMEN: Soft NT ND MS: Full ROM in all joints without edema NEUROLOGIC: No gross sensory or motor deficits, NVID SKIN: Normal color and temperature no lesions or rashes Moderate Sedation - Procedure Monitoring Vital Signs: Procedure Monitoring Vital Signs Temperature 98.4 F 10/29/18 19:50 Pulse Rate 75 10/29/18 19:50 Respiratory Rate 16 10/29/18 19:50 Blood Pressure 116/55 L 10/29/18 19:50 O2 Sat by Pulse Oximetry (%) 100 10/29/18 19:50 ED Treatment Course - ADDITIONAL ORDERS Additional order review: Laboratory Results 10/29/18 19:58 Urine Color Yellow Urine Appearance Slcloudy Urine pH 5.0 Ur Specific [place] 1.030 Urine Protein 1+ H Urine Glucose (UA) Negative Urine Ketones Trace H Urine Blood Negative Urine Nitrite Negative Urine Bilirubin Negative Urine Urobilinogen 2.0 H Ur Leukocyte Esterase 1+ H Urine WBC (Auto) 19 Urine RBC (Auto) 1 Ur Epithelial Cells Moderate Urine Mucus Moderate Urine HCG, Qual Negative Medical Decision Making - Medical Decision Making 10/29/18 21:14 flu negative + UTI *DC/Admit/Observation/Transfer Diagnosis at time of Disposition: Urinary tract infection, Upper respiratory infection - Discharge Dispostion Disposition: HOME Condition at time of disposition: Decision to Admit order: No - Referrals Referrals: Adarsh Chaudhary [Non Staff, Medical] - - Patient Instructions Printed Discharge Instructions: DI for Viral Upper Respiratory Infection -- Adult, Urinary Tract Infection, DI for Urinary Tract Infection (UTI) Additional Instructions: Follow-up with your primary care physician one to 2 days for further evaluation and treatment options. Return to the emergency room should symptoms worsen or go unresolved. Follow-up in the emergency room should you have any further issues or concerns. Please take the antibiotics as directed for the urinary tract infection. Her flu was negative today. - Post Discharge Activity
== END 2018-10-29 21:24 | disposition left against medical advice (07) ==
LOC: JERFT 19:48
DX: N39.0 Urinary tract infection, site not specified (principal); J06.9 Acute upper respiratory infection, unspecified
CPT/HCPCS: 81003; 81015; 84703; 87086; 87804; 99281-25

== ENCOUNTER → 2019-01-15 | Emergency (ER) | payer OTHER ==
[2019-01-15 23:32] VITALS: BP 114/68; PULSE 100; TEMP 98.4; BMI 34.2
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
--- NOTE | 2019-01-15 23:59 | PDOC ---
Attending Attestation - Resident Resident Name: Myles Zuniga - ED Attending Attestation I have performed the following: I have examined & evaluated the patient, The case was reviewed & discussed with the resident, I agree w/resident's findings & plan, Exceptions are as noted
== END | disposition left against medical advice (07) ==
LOC: JER 23:28
DX: Z53.21 Procedure and treatment not carried out due to patient leaving prior to being seen by health care provider (principal)
CPT/HCPCS: 99281-25

== ENCOUNTER 2019-04-24 19:59 | Emergency (ER) | payer SELFPAY ==
[2019-04-24 20:32] VITALS: BP 112/72; PULSE 114; TEMP 99; BMI 32.0
== END 2019-04-24 20:20 | disposition left against medical advice (07) ==
LOC: JER 19:59
DX: Z53.21 Procedure and treatment not carried out due to patient leaving prior to being seen by health care provider (principal)
CPT/HCPCS: 99281-25

== ENCOUNTER 2019-07-18 14:46 | Emergency (ER) | payer SELFPAY ==
[2019-07-18 15:09] VITALS: TEMP 99.1; BMI 77.5
--- NOTE | 2019-07-18 15:09 | PDOC ---
Rapid Medical Evaluation Time Seen by Provider: 07/18/19 15:06 Medical Evaluation: Allergies Allergy/AdvReac Type Severity Reaction Status Date / Time No Known Drug Allergies Allergy Verified 04/24/19 20:28 SEAFOOD Allergy Difficulty Uncoded 04/24/19 20:28 Breathing 07/18/19 15:07 I have performed a brief in-person evaluation of this patient. The patient presents with a chief complaint of: acute onset vomiting 10-15 times since 10 am today, denies fever/diarrhea. LMP 06/14 Pertinent physical exam findings: LLQ tenderness I have ordered the following: labs, urine The patient will proceed to the ED for further evaluation. Discharge Disposition - Diagnosis Vomiting - Referrals - Patient Instructions - Post Discharge Activity
[2019-07-18 15:47] LABS: EPI CELLS 9.6 /HPF (0-5/HPF); HYALINE CASTS 3 /lpf (0-8); URINE APPEARANCE CLEAR; URINE BACTERIA 311.8 /hpf (NEGATIVE); URINE BILIRUBIN NEGATIVE (NEGATIVE); URINE COLOR YELLOW; URINE GLUCOSE (UA) NEGATIVE (NEGATIVE); URINE KETONE NEGATIVE (NEGATIVE); URINE LEUK ESTERASE TRACE (NEGATIVE); URINE NITRITE NEGATIVE (NEGATIVE); URINE PROTEIN NEGATIVE (NEGATIVE); URINE RBC 1 /hpf (0-4); URINE UROBILINOGEN 0.2 mg/dL (0.2-1.0); URINE WBC 5 /hpf (0-5)
[2019-07-18 16:08] LABS: ALBUMIN 3.5 g/dl (3.4-5.0); BILIRUBIN,TOTAL 0.2 mg/dL (0.2-1); BLOOD UREA NITROGEN 8.1 mg/dL (7-18); CALCIUM 9.1 mg/dL (8.5-10.1); CREATININE 0.7 mg/dL (0.55-1.3); TOT PROT 7.3 g/dl (6.4-8.2)
[2019-07-18] MEDS ORDERED: SODIUM CHLORIDE 1,000 ML IV STA (16:37)
[2019-07-18] MEDS ORDERED: ACETAMINOPHEN 1000 MG/100 ML VIAL (NON FORMULARY) IVPB ONE (16:37)
[2019-07-18] MEDS ORDERED: ONDANSETRON 4 MG/2 ML VIAL IVPUSH ONE (16:37)
[2019-07-18 16:46] LABS: BASO % 0.4 % (0-2.0); EOS % 0.6 % (0-4.5); HEMATOCRIT 42.8 % (32.4-45.2); LYMPH % 20.9 % (8-40); MCH 30.4 pg (25.7-33.7); MCHC 32.8 g/dl (32.0-36.0); MEAN CELL VOLUME 92.9 fl (80-96); MEAN PLT VOLUME 8.7 fl (7.5-11.1); MONO % 5.1 % (3.8-10.2); PLATELET COUNT 259 K/MM3 (134-434); RDW 13.5 % (11.6-15.6); WHITE BLOOD COUNT 13.2 K/mm3 (4.0-10.0)
[2019-07-18] MEDS ORDERED: ACETAMINOPHEN INJECTION 100 ML IVPB ONE (17:12)
[2019-07-18] MEDS ORDERED: ONDANSETRON 4 MG/2 ML VIAL ONE (17:13)
--- NOTE | 2019-07-18 17:26 | PDOC ---
History of Present Illness - General Chief Complaint: Nausea/Vomiting Stated Complaint: VOMITING Time Seen by Provider: 07/18/19 15:06 History Source: Patient Exam Limitations: No Limitations Past History - Past Medical History Allergies/Adverse Reactions: Allergies Allergy/AdvReac Type Severity Reaction Status Date / Time No Known Drug Allergies Allergy Verified 04/24/19 20:28 SEAFOOD Allergy Difficulty Uncoded 04/24/19 20:28 Breathing Home Medications: Ambulatory Orders Nitrofurantoin Monohyd/M-Cryst [Macrobid -] 100 mg PO BID #14 capsule 10/29/18 Cephalexin Monohydrate [Keflex -] 500 mg PO BID #14 capsule 07/18/19 Anemia: Yes COPD: No Kidney Stones: Yes - Immunization History Immunization Up to Date: Yes - Psycho Social/Smoking Cessation Hx Smoking History: Never smoked Have you smoked in the past 12 months: No Information on smoking cessation initiated: No Hx Alcohol Use: No Drug/Substance Use Hx: No Substance Use Type: None *Physical Exam - Vital Signs Last Vital Signs Temp Pulse Resp BP Pulse Ox 99.1 F 102 H 18 169/73 98 07/18/19 15:07 07/18/19 15:07 07/18/19 15:07 07/18/19 15:07 07/18/19 15:07 - Physical Exam General Appearance: No: Apparent Distress Respiratory/Chest: positive: Lungs Clear, Normal Breath Sounds. negative: Respiratory Distress Cardiovascular: positive: Regular Rhythm, Regular Rate, S1, S2. negative: Murmur Gastrointestinal/Abdominal: positive: Normal Bowel Sounds, Soft. negative: Tender, Distended, Guarding, Rebound Musculoskeletal: negative: CVA Tenderness, Muscle Spasm, Vertebral Tenderness Extremity: negative: Pedal Edema, Swelling, Calf Tenderness Integumentary: positive: Normal Color. negative: Swelling, Ecchymosis, Bruising Neurologic: positive: nut former II-XII NML intact, Fully Oriented, Alert, Normal Mood/ Affect, Other (strength exam limited as patient with pain on movement of R leg ( particularly with flexion of knee), able to ambulate). negative: Facial Droop, Confused, Disoriented ED Treatment Course - LABORATORY CBC & Chemistry Diagram: 07/18/19 15:25 07/18/19 15:25 - ADDITIONAL ORDERS Additional order review: Laboratory Results 07/18/19 07/18/19 07/18/19 15:25 15:25 15:25 Sodium 138 Potassium 4.0 Chloride 103 Carbon Dioxide 25 Anion Gap 10 BUN 8.1 Creatinine 0.7 Est GFR (CKD-EPI)AfAm 133.81 Est GFR (CKD-EPI)NonAf 115.45 Random Glucose 84 Calcium 9.1 Total Bilirubin 0.2 AST 12 L ALT 18 Alkaline Phosphatase 71 Total Protein 7.3 Albumin 3.5 Lipase 80 Urine Color Yellow Urine Appearance Clear Urine pH 6.0 Ur Specific [place] 1.021 Urine Protein Negative Urine Glucose (UA) Negative Urine Ketones Negative Urine Blood Negative Urine Nitrite Negative Urine Bilirubin Negative Urine Urobilinogen 0.2 Ur Leukocyte Esterase Trace Urine WBC (Auto) 5 Urine RBC (Auto) 1 Urine Casts (Auto) 3 U Epithel Cells (Auto) 9.6 Urine Bacteria (Auto) 311.8 Urine HCG, Qual Positive 07/18/19 15:25 RBC 4.60 MCV 92.9 MCHC 32.8 RDW 13.5 MPV 8.7 Neutrophils % 73.0 D Lymphocytes % 20.9 D Monocytes % 5.1 Eosinophils % 0.6 Basophils % 0.4 - RADIOLOGY Radiology Studies Ordered: Category Date Time Status TRANSVAGINAL US PREG [US] Stat Ultrasound 07/18/19 16:37 Ordered Medical Decision Making - Medical Decision Making 33 y/o F with hx of kidney stones s/p lithotripsy 3 years ago presents with L sided abdominal pain from this morning along with 15 episodes of NBNB emesis. Also mentions having RLE pain and heaviness; sxs are through the whole leg and start from the thigh and go down to all the toes. Denies trauma. Works as bus assistant. Denies fever, sob, cp, diarrhea, urinary complaints, vaginal bleeding, bowel/bladder incontinence, saddle/groin parethesia. LNMP Jun 11 (patient not sure of exact date); has regular menstrual cycles UCG positive Patient found to be R/o ectopic Plan: Labs, TVUS, IVF, Zofran, Tylenol, reassess Unclear cause of RLE heaviness Not suspicious for DVT, cauda equina, stroke, sciatica Will reassess after meds and TVUS 07/18/19 17:23 Ultrasound shows evidence of IUP at 7 weeks heart rate was noted Small subchorionic hemorrhage also noted Patient reexamined regarding right lower extremity Again no suspicion for DVT, stroke, sciatica Patient with no weakness of right lower extremity Patient endorses feeling tightness in her hamstring muscles when she flexes her knee Likely could be musculoskeletal pain Results of urine discussed with Dr. Quinteros, recommended for antibiotics given bacteruria and Will refer patient to GEOGRAPH[facility]FORMATION SYSTEMS ENGINEER for continued monitoring of her 07/18/19 19:13 Discharge - Discharge Information Problems reviewed: Yes Clinical Impression/Diagnosis: Qualifiers: Weeks of gestation: less than 8 weeks Qualified Code(s): Z3A.01 - Less than 8 weeks gestation of Condition: Improved Disposition: HOME - Admission No - Additional Discharge Information Prescriptions: Cephalexin Monohydrate [Keflex -] 500 mg PO BID #14 capsule Prescription Drug Monitoring Program (I-STOP) results: I-STOP not reviewed - Follow up/Referral Referrals: Delma Solomon MD [Staff Physician] - 2 Days - Patient Discharge Instructions Patient Printed Discharge Instructions: Managing Symptoms of Additional Instructions: Thank you for choosing [facility]. It was a pleasure taking care of you. Your ultrasound shows that you are currently at 7 weeks You also have evidence of a small subchorionic bleed Please follow-up with the OB doctor for continued monitoring regarding this You are also started on antibiotics for possible urine infection If your urine culture is negative you will get a call back Please start taking vitamins Recommend taking Tylenol as needed for tightness in right hamstring muscles and stretching Return to the Emergency Department if your symptoms worsen or persist, you have fever, shortness of breath, chest pain, severe abdominal pain, vomiting, vaginal bleeding, calf pain, leg swelling, unable to walk or other concerning symptoms. - Post Discharge Activity
[2019-07-18 18:56] VITALS: BP 108/52; PULSE 72
== END 2019-07-18 19:32 | disposition home or self-care (01) ==
LOC: JER 14:46
PROC: 3E033NZ Introduction of Analgesics, Hypnotics, Sedatives into Peripheral Vein, Percutaneous Approach (ICD-10-PCS; principal; 2019-07-18)
PROC: 3E033GC Introduction of Other Therapeutic Substance into Peripheral Vein, Percutaneous Approach (ICD-10-PCS; 2019-07-18)
DX: O26.891 Other specified pregnancy related conditions, first trimester (principal); O46.8X1 Other antepartum hemorrhage, first trimester; Z3A.01 Less than 8 weeks gestation of pregnancy; Z91.013 Allergy to seafood
CPT/HCPCS: 36415; 76817-TC; 80053; 81003; 83690; 84702; 84703; 85025; 87077; 87086; 87186; 99283-25; J0131; J7030

== ENCOUNTER 2019-08-07 20:35 | Emergency (ER) | payer OTHER ==
--- NOTE | 2019-08-07 20:55 | PDOC ---
Rapid Medical Evaluation Time Seen by Provider: 08/07/19 20:53 Medical Evaluation: Allergies Allergy/AdvReac Type Severity Reaction Status Date / Time No Known Drug Allergies Allergy Verified 04/24/19 20:28 SEAFOOD Allergy Difficulty Uncoded 04/24/19 20:28 Breathing 08/07/19 20:54 CC: 10 weeks - unable to tolerate PO's PE: no focal findings. Orders: labs, urine, NS, Zofran Patient will proceed to ER for further evaluation. Discharge Disposition - Diagnosis Vomiting - Referrals - Patient Instructions - Post Discharge Activity
[2019-08-07] MEDS ORDERED: ONDANSETRON 4 MG/2 ML VIAL IVPUSH ONE (20:56)
[2019-08-07] MEDS ORDERED: SODIUM CHLORIDE 1,000 ML IV STA (20:56)
[2019-08-07 20:58] VITALS: BMI 27.3
[2019-08-07 21:20] LABS: URINE APPEARANCE CLEAR; URINE BILIRUBIN NEGATIVE (NEGATIVE); URINE COLOR YELLOW; URINE GLUCOSE (UA) NEGATIVE (NEGATIVE); URINE KETONE TRACE (NEGATIVE); URINE LEUK ESTERASE NEGATIVE (NEGATIVE); URINE NITRITE NEGATIVE (NEGATIVE); URINE PROTEIN NEGATIVE (NEGATIVE)
[2019-08-07 21:36] LABS: BASO % 0.2 % (0-2.0); EOS % 0.7 % (0-4.5); HEMATOCRIT 40.7 % (32.4-45.2); HEMOGLOBIN 13.6 GM/dL (10.7-15.3); LYMPH % 22.7 % (8-40); MCHC 33.3 g/dl (32.0-36.0); MEAN CELL VOLUME 92.9 fl (80-96); MEAN PLT VOLUME 7.9 fl (7.5-11.1); MONO % 4.1 % (3.8-10.2); NEUT % 72.3 % (42.8-82.8); PLATELET COUNT 262 K/MM3 (134-434); RBC 4.38 M/mm3 (3.60-5.2); RDW 13.9 % (11.6-15.6); WHITE BLOOD COUNT 13.1 K/mm3 (4.0-10.0)
[2019-08-07] MEDS ORDERED: ONDANSETRON 4 MG/2 ML VIAL ONE (22:03)
--- NOTE | 2019-08-07 22:18 | PDOC ---
History of Present Illness - General Chief Complaint: Nausea/Vomiting Stated Complaint: Time Seen by Provider: 08/07/19 20:53 - History of Present Illness Initial Comments: Ms. Chamberlain is a 33 y/o female with no significant PMH, @ 10 weeks, presenting today with nausea and vomiting for the past 4 days. Reports associated chills. Reports that it has been difficult to keep down liquids and food. Denies any other symptoms. Reports that she has felt nauseated with prior pregnancies but this is worse. Denies fever, headache, dizziness, chest pain, shortness of breath, abdominal pain, back pain, dysuria, vaginal bleeding, changes in stool. OB: Dr. Garner Past History - Past Medical History Allergies/Adverse Reactions: Allergies Allergy/AdvReac Type Severity Reaction Status Date / Time No Known Drug Allergies Allergy Verified 08/07/19 20:58 SEAFOOD Allergy Difficulty Uncoded 08/07/19 20:58 Breathing Home Medications: Ambulatory Orders Nitrofurantoin Monohyd/M-Cryst [Macrobid -] 100 mg PO BID #14 capsule 10/29/18 Cephalexin Monohydrate [Keflex -] 500 mg PO BID #14 capsule 07/18/19 Anemia: Yes COPD: No Kidney Stones: Yes - Immunization History Immunization Up to Date: Yes - Psycho Social/Smoking Cessation Hx Smoking History: Never smoked Have you smoked in the past 12 months: No Information on smoking cessation initiated: No Hx Alcohol Use: No Drug/Substance Use Hx: No Substance Use Type: None Abd/GI Specific PMHX - Complaint Specific PMHX Colitis: No Diverticulitis: No Gall Bladder Disease: No GERD: No Hepatitis: No Irritable Bowel Synd (IBS): No Pancreatitis: No GI Ulcer Disease: No Review of Systems - Review of Systems Comments:: GENERAL/CONSTITUTIONAL: No fever. Reports chills. No weakness._ HEAD, EYES, EARS, NOSE AND THROAT: No change in vision. No change in hearing. No sore throat._ CARDIOVASCULAR: No chest pain or shortness of breath_ RESPIRATORY: Denies cough, hemoptysis_ GASTROINTESTINAL: Reports nausea and vomiting. No diarrhea or constipation._ GENITOURINARY: No dysuria, frequency, or change in urination._ MUSCULOSKELETAL: No joint or muscle swelling or pain. No neck or back pain._ SKIN: No rash_ NEUROLOGIC: No headache, vertigo, loss of consciousness, or change in strength/ sensation._ ENDOCRINE: No increased thirst. No abnormal weight change_ HEMATOLOGIC/LYMPHATIC: No anemia, easy bleeding, or history of blood clots._ ALLERGIC/IMMUNOLOGIC: No hives or skin allergy._ *Physical Exam - Vital Signs Last Vital Signs Temp Pulse Resp BP Pulse Ox 98.5 F 103 H 18 120/75 100 08/07/19 20:56 08/07/19 20:56 08/07/19 20:56 08/07/19 20:56 08/07/19 20:56 - Physical Exam Comments: GENERAL: Awake, alert, and oriented to person/place/time, in no acute distress_ HEAD: No signs of trauma, normocephalic, atraumatic _ EYES: PERRLA, EOMI, sclera anicteric, conjunctiva clear_ ENT: Hearing grossly normal, nares patent, oropharynx clear without exudates. No uvular deviation. Dry mucosa. NECK: Normal ROM, supple, no lymphadenopathy, JVD, or masses_ LUNGS: No distress, speaks in full sentences, clear to auscultation bilaterally _ HEART: Regular rate and rhythm, normal S1 and S2, no murmurs appreciated, peripheral pulses normal and equal bilaterally._ ABDOMEN: Soft, nontender. No guarding, no rebound. No masses_ EXTREMITIES: Normal inspection, Normal range of motion, no edema. No clubbing or cyanosis_ NEUROLOGICAL: Cranial nerves II through XII grossly intact. Normal speech, normal gait, no focal sensorimotor deficits _ SKIN: Warm, Dry, normal turgor, no rashes or lesions noted_ ED Treatment Course - LABORATORY CBC & Chemistry Diagram: 08/07/19 21:16 08/07/19 21:16 - ADDITIONAL ORDERS Additional order review: Laboratory Results 08/07/19 21:03 Urine Color Yellow Urine Appearance Clear Urine pH 5.0 Ur Specific [place] 1.032 Urine Protein Negative Urine Glucose (UA) Negative Urine Ketones Trace H Urine Blood Negative Urine Nitrite Negative Urine Bilirubin Negative Urine Urobilinogen 1.0 Ur Leukocyte Esterase Negative 08/07/19 21:16 RBC 4.38 MCV 92.9 MCHC 33.3 RDW 13.9 MPV 7.9 Neutrophils % 72.3 Lymphocytes % 22.7 Monocytes % 4.1 Eosinophils % 0.7 Basophils % 0.2 Medical Decision Making - Medical Decision Making 08/07/19 22:17 33F @ 10 weeks presenting with nausea and vomiting for the past 4 days associated with chills. -CBC, CMP -UA, UC -POCUS transabdominal -IVFmatan 08/08/19 00:42 Labs and UA reviewed and wnl except for elevated WBC. Pt reassessed. Reports that she still feels nauseated and is vomiting. -pepcid -tylenol -additional liter IVF 08/08/19 01:25 Pt tolerating PO well. Plan to d/c home, f/u PCP within 2 days. Discharge - Discharge Information Problems reviewed: Yes Clinical Impression/Diagnosis: Vomiting Condition: Stable Disposition: HOME - Admission No - Follow up/Referral Referrals: Aleksey Guerrero MD [Staff Physician] - - Patient Discharge Instructions Additional Instructions: Please make a follow up appointment with your OB in the next two days. Please continue hydrating yourself with clear liquids as you are able to tolerate. If you experience any new, worsening, or concerning symptoms, including severe nausea, vomiting, fever, chills, vaginal bleeding, or any other concerns, please return to the emergency department. - Post Discharge Activity Work/Back to School Note: Back to Work
[2019-08-07 22:29] LABS: ALBUMIN 3.5 g/dl (3.4-5.0); BILIRUBIN,TOTAL 0.4 mg/dL (0.2-1); BLOOD UREA NITROGEN 9.1 mg/dL (7-18); CALCIUM 8.6 mg/dL (8.5-10.1); CREATININE 0.8 mg/dL (0.55-1.3); TOT PROT 7.4 g/dl (6.4-8.2)
--- NOTE | 2019-08-07 22:38 | PDOC ---
Documentation entered by Ivonne Limon SCRIBE, acting as scribe for Deysi Hewitt DO. Deysi Hewitt DO: This documentation has been prepared by the Braxton kaur Adrianna, SCRIBE, under my direction and personally reviewed by me in its entirety. I confirm that the documentation accurately reflects all work, treatment, procedures, and medical decision making performed by me. Attending Attestation - Resident Resident Name: [email or web address] - ED Attending Attestation I have performed the following: I have examined & evaluated the patient, The case was reviewed & discussed with the resident, I agree w/resident's findings & plan, Exceptions are as noted - HPI HPI: The patient is a 33 year old female, A0 currently at ~9 weeks gestation, who presents to the ED for evaluation of nausea and vomit for 4 days. Patient reports multiple episodes of nausea and NBNB vomit. She has been unable to tolerate PO intake at this time. Denies any vaginal symptoms. Allergies: Seafood Surgical History: None reported Social History: Denies EtOH, tobacco, or illicit drug use - Physicial Exam PE: Constitutional: Awake, alert, oriented. No acute distress. Nontoxic appearing. Head: Normocephalic. Atraumatic Eyes: PERRL. EOMI. Conjunctivae are not pale. ENT: +Dry, tacky mucous membranes. Posterior pharynx without exudates or erythema. Uvula midline. Neck: Supple. Full ROM. No lymphadenopathy. Cardiovascular: Regular rate. Regular rhythm. S1, S2 regular. Distal pulses are 2+ and symmetric. Pulmonary/Chest: No evidence of respiratory distress. Clear to auscultation bilaterally No wheezing, rales or rhonchi. Abdominal: Soft and nondistended. There is no tenderness. No rebound, guarding or rigidity. No organomegaly. No palpable masses. Good bowel sounds. Back: No CVA tenderness. Musculoskeletal: No edema. No cyanosis. No clubbing. Full range of motion in all extremities. Nocalf tenderness. Radial/pedal pulses are intact and 2+ bilaterally Skin: Skin is warm and dry. No petechiae. No purpura. Neurological: Alert and oriented to person, place, and time. Cranial nerves II -XII are grossly intact. Normal speech. Strength is grossly symmetric. No sensory deficits. Psychiatric: Good eye contact. Normal interaction, affect and behavior. - Medical Decision Making 08/07/19 22:35 I, Dr. Deysi Hewitt, DO, attest that this document has been prepared under my direction and personally reviewed by me in its entirety. I further attest, that it accurately reflects all work, treatment, procedures and medical decision -making performed by me. a/p: 33yo female at 10weeks gestation with 4 days of n/v - nbnb -no diarrhea -no abd cramping -no vaginal bleeding/discharge -labs sent from [facility] shows iup at 9 weeks with fhr 150 -will hydrate, zofran, po challenge when feeling better -will monitor and reassess 08/07/19 22:38 mildly elevated wbc trace ketones ivf hydration running 08/07/19 22:39 no uti 08/08/19 01:17 pt sitting up, drinking juice will repeat vitals pt states she is no longer nauseated-po challenge given 08/08/19 01:24 pt feels better tolerated po stable for dc to home and follow up with [facility]
[2019-08-07] MEDS ORDERED: METOCLOPRAMIDE HCL INJECTION 10 MG/2 ML VIAL IVPUSH ONE (23:33)
[2019-08-07] MEDS ORDERED: METOCLOPRAMIDE HCL INJECTION 10 MG/2 ML VIAL ONE (23:48)
[2019-08-08] MEDS ORDERED: FAMOTIDINE 20 MG/50 ML IVPB 20 MG/50 ML MG IVPB ONE ×2 (00:39→01:47)
[2019-08-08] MEDS ORDERED: ACETAMINOPHEN 1000 MG/100 ML VIAL (NON FORMULARY) IVPB ONE (00:39)
[2019-08-08 01:31] VITALS: BP 104/54; PULSE 95; TEMP 97.9
[2019-08-08] MEDS ORDERED: ACETAMINOPHEN INJECTION 100 ML IVPB ONE ×2 (01:47→01:56)
== END 2019-08-08 02:50 | disposition home or self-care (01) ==
LOC: JER 20:35
PROC: BY49ZZZ Ultrasonography of First Trimester, Single Fetus (ICD-10-PCS; principal; 2019-08-07)
PROC: 3E0337Z Introduction of Electrolytic and Water Balance Substance into Peripheral Vein, Percutaneous Approach (ICD-10-PCS; 2019-08-07)
PROC: 3E033GC Introduction of Other Therapeutic Substance into Peripheral Vein, Percutaneous Approach (ICD-10-PCS; 2019-08-07)
PROC: 3E033GC Introduction of Other Therapeutic Substance into Peripheral Vein, Percutaneous Approach (ICD-10-PCS; 2019-08-07)
PROC: 3E033GC Introduction of Other Therapeutic Substance into Peripheral Vein, Percutaneous Approach (ICD-10-PCS; 2019-08-07)
PROC: 3E033NZ Introduction of Analgesics, Hypnotics, Sedatives into Peripheral Vein, Percutaneous Approach (ICD-10-PCS; 2019-08-07)
DX: O26.891 Other specified pregnancy related conditions, first trimester (principal); O21.0 Mild hyperemesis gravidarum; Z3A.09 9 weeks gestation of pregnancy
CPT/HCPCS: 36415; 76815; 80053; 81003; 84702; 85025; 87086; 99282-25; J0131; J7030

== ENCOUNTER 2019-11-07 13:16 | Emergency (ER) | payer BC ==
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
[2019-11-07 13:27] VITALS: BP 124/77; PULSE 94; TEMP 98.4; BMI 36.6
[2019-11-07] MEDS ORDERED: ACETAMINOPHEN 325 MG TABLET (FP) PO ONE (14:10)
[2019-11-07] MEDS ORDERED: ACETAMINOPHEN 325 MG TABLET (FP) ONE (14:11)
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
== END 2019-11-07 14:26 | disposition home or self-care (01) ==
LOC: JERFT 13:16
DX: T14.8XXA Other injury of unspecified body region, initial encounter (principal); O26.892 Other specified pregnancy related conditions, second trimester; Y04.2XXA Assault by strike against or bumped into by another person, initial encounter; Z3A.22 22 weeks gestation of pregnancy; Y93.9 Activity, unspecified; Y92.89 Other specified places as the place of occurrence of the external cause; Z88.0 Allergy status to penicillin; Z91.013 Allergy to seafood
CPT/HCPCS: 73090-TC-RT-FY; 73130-TC-RT-FY; 99281-25

== ENCOUNTER 2023-06-20 19:21 | Emergency (ER) | payer BC, OTHER ==
[2023-06-20 19:24] VITALS: BP 117/63; PULSE 100; RESP 18; TEMP 99.3; BMI 40.0
[2023-06-20] MEDS ORDERED: ACETAMINOPHEN 500 MG TABLET (FP) PO ONE (19:40)
[2023-06-20] MEDS ORDERED: ACETAMINOPHEN 500 MG TABLET (FP) ONE (19:45)
[2023-06-20 21:16] LABS: BASO % 0.2 % (0-2.0); EOS % 0.8 % (0-4.5); HEMATOCRIT 42.2 % (32.4-45.2); HEMOGLOBIN 14.6 GM/dL (10.7-15.3); LYMPH % 28.8 % (8-40); MCH 31.2 pg (25.7-33.7); MCHC 34.6 g/dl (32.0-36.0); MEAN PLT VOLUME 7.7 fl (7.5-11.1); MONO % 4.6 % (3.8-10.2); NEUT % 65.6 % (42.8-82.8); PLATELET COUNT 300 10^3/uL (134-434); RBC 4.69 M/mm3 (3.60-5.2); RDW 13.8 % (11.6-15.6); WHITE BLOOD COUNT 13.4 K/mm3 (4.0-10.0)
== END 2023-06-20 20:56 | disposition home or self-care (01) ==
LOC: JERFT 19:21
DX: O99.891 Other specified diseases and conditions complicating pregnancy (principal); M54.50 Low back pain, unspecified; Z3A.01 Less than 8 weeks gestation of pregnancy
CPT/HCPCS: 36415; 84702; 84703; 85025; 86850; 86900; 86901; 99283-25

== ENCOUNTER 2023-07-01 20:12 | Emergency (ER) | payer OTHER ==
[2023-07-01 20:23] VITALS: BP 117/74; PULSE 102; RESP 19; TEMP 98.7; BMI 40.0
[2023-07-01] MEDS ORDERED: SODIUM CHLORIDE 0.9% 500 ML INFUS.BAG IV ONE (20:34)
[2023-07-01] MEDS ORDERED: METOCLOPRAMIDE HCL INJECTION 10 MG/2 ML VIAL IVPUSH ONE (20:43)
[2023-07-01] MEDS ORDERED: METOCLOPRAMIDE HCL INJECTION 10 MG/2 ML VIAL ONE (20:56)
[2023-07-01 21:06] LABS: EPI CELLS 19 /uL (0-25.1); HYALINE CASTS 1 /uL (0-3.1); URINE APPEARANCE CLEAR; URINE BACTERIA 397 /uL (0-1359); URINE BILIRUBIN NEGATIVE (NEGATIVE); URINE COLOR YELLOW; URINE GLUCOSE (UA) NEGATIVE (NEGATIVE); URINE KETONE TRACE (NEGATIVE); URINE LEUK ESTERASE 1+ (NEGATIVE); URINE NITRITE NEGATIVE (NEGATIVE); URINE PROTEIN NEGATIVE (NEGATIVE); URINE RBC 14 /uL (0-23.9); URINE WBC 94 /uL (0-25.8)
[2023-07-01 21:10] LABS: BASO % 1.3 % (0-2.0); EOS % 1.4 % (0-4.5); HEMATOCRIT 40.2 % (32.4-45.2); HEMOGLOBIN 13.4 GM/dL (10.7-15.3); LYMPH % 27.1 % (8-40); MCH 30.6 pg (25.7-33.7); MCHC 33.3 g/dl (32.0-36.0); MEAN PLT VOLUME 7.7 fl (7.5-11.1); MONO % 4.7 % (3.8-10.2); NEUT % 65.5 % (42.8-82.8); PLATELET COUNT 283 10^3/uL (134-434); RBC 4.37 M/mm3 (3.60-5.2); RDW 13.9 % (11.6-15.6); WHITE BLOOD COUNT 14.2 K/mm3 (4.0-10.0)
[2023-07-01 21:28] LABS: POTASSIUM 3.9 mmol/L (3.5-5.1)
[2023-07-01 21:30] LABS: CALCIUM 8.5 mg/dL (8.5-10.1)
[2023-07-01 21:31] LABS: ALBUMIN 3.2 g/dl (3.4-5.0); BLOOD UREA NITROGEN 6.3 mg/dL (7-18)
[2023-07-01 21:34] LABS: CREATININE 0.8 mg/dL (0.55-1.3)
[2023-07-01 21:35] LABS: BILIRUBIN,TOTAL 0.1 mg/dL (0.2-1); TOT PROT 7.3 g/dl (6.4-8.2)
[2023-07-01] MEDS ORDERED: NITROFURANTOIN MACROCRYSTAL 50 MG CAPSULE (FP) ONE (21:41)
[2023-07-01] MEDS ORDERED: NITROFURANTOIN MACROCRYSTAL 50 MG CAPSULE (FP) PO ONE (21:45)
== END 2023-07-01 22:22 | disposition home or self-care (01) ==
LOC: JER 20:12
PROC: 3E033GC Introduction of Other Therapeutic Substance into Peripheral Vein, Percutaneous Approach (ICD-10-PCS; principal; 2023-07-01)
DX: O21.9 Vomiting of pregnancy, unspecified (principal); O26.811 Pregnancy related exhaustion and fatigue, first trimester; O26.891 Other specified pregnancy related conditions, first trimester; R11.0 Nausea; R63.0 Anorexia; O23.91 Unspecified genitourinary tract infection in pregnancy, first trimester; R82.71 Bacteriuria; R61 Generalized hyperhidrosis; R00.0 Tachycardia, unspecified; Z3A.01 Less than 8 weeks gestation of pregnancy
CPT/HCPCS: 36415; 76815; 80053; 81003; 83690; 85025; 87086; 99284-25

== ENCOUNTER 2023-07-14 10:36 | Emergency (ER) | payer OTHER ==
[2023-07-14 10:58] VITALS: BP 128/66; PULSE 90; RESP 15; TEMP 98.5; BMI 39.6
[2023-07-14] MEDS ORDERED: SODIUM CHLORIDE 0.9% 500 ML INFUS.BAG IV ONE ×2 (11:37→14:49)
[2023-07-14] MEDS ORDERED: ONDANSETRON 4 MG/2 ML VIAL IVPUSH PRN (11:37)
[2023-07-14 11:42] LABS: BASO % 0.6 % (0-2.0); EOS % 0.7 % (0-4.5); HEMATOCRIT 40.9 % (32.4-45.2); HEMOGLOBIN 14.3 GM/dL (10.7-15.3); LYMPH % 17.6 % (8-40); MCH 31.6 pg (25.7-33.7); MCHC 34.9 g/dl (32.0-36.0); MEAN CELL VOLUME 90.7 fl (80-96); MEAN PLT VOLUME 7.6 fl (7.5-11.1); MONO % 3.1 % (3.8-10.2); PLATELET COUNT 295 10^3/uL (134-434); RBC 4.51 M/mm3 (3.60-5.2); RDW 13.7 % (11.6-15.6); WHITE BLOOD COUNT 10.9 K/mm3 (4.0-10.0)
[2023-07-14 11:44] LABS: HCG,QUALITATIVE URINE Positive; URINE APPEARANCE CLEAR; URINE BILIRUBIN NEGATIVE (NEGATIVE); URINE COLOR YELLOW; URINE GLUCOSE (UA) NEGATIVE (NEGATIVE); URINE KETONE TRACE (NEGATIVE); URINE LEUK ESTERASE NEGATIVE (NEGATIVE); URINE NITRITE NEGATIVE (NEGATIVE); URINE PROTEIN NEGATIVE (NEGATIVE)
[2023-07-14 12:15] LABS: POTASSIUM 3.8 mmol/L (3.5-5.1)
[2023-07-14 12:18] LABS: ALBUMIN 3.3 g/dl (3.4-5.0); BLOOD UREA NITROGEN 7.5 mg/dL (7-18); CALCIUM 8.4 mg/dL (8.5-10.1)
[2023-07-14 12:22] LABS: BILIRUBIN,TOTAL 0.2 mg/dL (0.2-1); CREATININE 0.8 mg/dL (0.55-1.3); TOT PROT 7.5 g/dl (6.4-8.2)
[2023-07-14] MEDS ORDERED: ALBUTEROL SO4 2.5/IPRATROPIUM 0.5 INH SOL 3 ML VIAL.NEB. NEB PRN (12:47)
[2023-07-14] MEDS ORDERED: ALBUTEROL SO4 2.5/IPRATROPIUM 0.5 INH SOL 3 ML VIAL.NEB. NEB ONE ×2 (14:58→14:59)
[2023-07-14] MEDS: ALBUTEROL SO4 2.5/IPRATROPIUM 0.5 INH SOL 3 ML VIAL.NEB. NEB SCH ×2 (16:14→16:15)
== END 2023-07-14 16:56 | disposition home or self-care (01) ==
LOC: JER 10:36
PROC: 3E033GC Introduction of Other Therapeutic Substance into Peripheral Vein, Percutaneous Approach (ICD-10-PCS; principal; 2023-07-14)
PROC: 3E0F7GC Introduction of Other Therapeutic Substance into Respiratory Tract, Via Natural or Artificial Opening (ICD-10-PCS; 2023-07-14)
PROC: 3E0F7GC Introduction of Other Therapeutic Substance into Respiratory Tract, Via Natural or Artificial Opening (ICD-10-PCS; 2023-07-14)
DX: O26.891 Other specified pregnancy related conditions, first trimester (principal); R55 Syncope and collapse; R42 Dizziness and giddiness; O99.891 Other specified diseases and conditions complicating pregnancy; H93.19 Tinnitus, unspecified ear; O21.9 Vomiting of pregnancy, unspecified; Z3A.08 8 weeks gestation of pregnancy
CPT/HCPCS: 36415; 76817-TC; 80053; 81003; 84702; 84703; 85025; 93005; 93010; 99285-25

== ENCOUNTER 2023-07-23 21:12 | Emergency (ER) | payer OTHER ==
[2023-07-23 21:18] VITALS: BP 139/78; PULSE 101; RESP 20; TEMP 98.3; BMI 38.7
[2023-07-23] MEDS ORDERED: ALBUTEROL SO4 2.5/IPRATROPIUM 0.5 INH SOL 3 ML VIAL.NEB. NEB ONE ×5 (21:37→22:23)
[2023-07-23] MEDS ORDERED: DEXAMETHASONE SOD PHOSPHATE 10 MG/1 ML VIAL IM ONE (22:50)
[2023-07-23] MEDS ORDERED: DEXAMETHASONE SOD PHOSPHATE 10 MG/1 ML VIAL ONE (22:52)
[2023-07-23] MEDS ORDERED: AZITHROMYCIN 250 MG TABLET PO ONE (23:22)
[2023-07-23] MEDS ORDERED: AZITHROMYCIN 500 MG TABLET ONE (23:32)
== END 2023-07-23 23:48 | disposition home or self-care (01) ==
LOC: JER 21:12
PROC: 3E023GC Introduction of Other Therapeutic Substance into Muscle, Percutaneous Approach (ICD-10-PCS; principal; 2023-07-23)
PROC: 3E0F7GC Introduction of Other Therapeutic Substance into Respiratory Tract, Via Natural or Artificial Opening (ICD-10-PCS; 2023-07-23)
PROC: 3E0F7GC Introduction of Other Therapeutic Substance into Respiratory Tract, Via Natural or Artificial Opening (ICD-10-PCS; 2023-07-23)
DX: O99.511 Diseases of the respiratory system complicating pregnancy, first trimester (principal); J45.901 Unspecified asthma with (acute) exacerbation; R06.02 Shortness of breath; O26.891 Other specified pregnancy related conditions, first trimester; R51.9 Headache, unspecified; R07.89 Other chest pain; R05.9 Cough, unspecified; Z20.822 Contact with and (suspected) exposure to COVID-19; Z3A.09 9 weeks gestation of pregnancy
CPT/HCPCS: 0241U-QW; 99284-25; J1100

== ENCOUNTER 2023-11-15 16:45 | Inpatient (IN) | payer BC, OTHER ==
[2023-11-15 17:47] VITALS: BMI 37.8
[2023-11-15] MEDS ORDERED: ALBUTEROL SO4 2.5/IPRATROPIUM 0.5 INH SOL 3 ML VIAL.NEB. NEB ONE ×3 (18:16→18:45)
[2023-11-15] MEDS ORDERED: methylPREDNISolone NA SUCC 125 MG/2 ML VIAL ONE (18:19)
[2023-11-15] MEDS ORDERED: MAGNESIUM SULFATE IN WATER 2 GM/50 ML IVPB IVPB ONE (18:20)
[2023-11-15] MEDS: methylPREDNISolone NA SUCC 125 MG/2 ML VIAL IVPB ONE (18:35)
[2023-11-15] MEDS: ALBUTEROL SO4 2.5/IPRATROPIUM 0.5 INH SOL 3 ML VIAL.NEB. NEB SCH (18:35)
[2023-11-15] MEDS: MAGNESIUM SULFATE IN WATER 2 GM/50 ML IVPB IVPB ONE (18:35)
[2023-11-15 18:46] LABS: BASO % 0.3 % (0-2.0); EOS % 0.9 % (0-4.5); HEMATOCRIT 40.4 % (32.4-45.2); HEMOGLOBIN 13.6 GM/dL (10.7-15.3); LYMPH % 15.3 % (8-40); MCH 30.7 pg (25.7-33.7); MCHC 33.7 g/dl (32.0-36.0); MEAN CELL VOLUME 91.1 fl (80-96); MONO % 5.5 % (3.8-10.2); PLATELET COUNT 245 10^3/uL (134-434); RBC 4.44 M/mm3 (3.60-5.2); RDW 14.1 % (11.6-15.6); WHITE BLOOD COUNT 12.1 K/mm3 (4.0-10.0)
[2023-11-15 18:57] LABS: POTASSIUM 3.6 mmol/L (3.5-5.1)
[2023-11-15 19:00] LABS: CALCIUM 9.3 mg/dL (8.5-10.1)
[2023-11-15 19:01] LABS: ALBUMIN 3.1 g/dl (3.4-5.0); BLOOD UREA NITROGEN 5.2 mg/dL (7-18)
[2023-11-15 19:04] LABS: CREATININE 0.5 mg/dL (0.55-1.3)
[2023-11-15 19:06] LABS: BILIRUBIN,TOTAL 0.2 mg/dL (0.2-1); TOT PROT 7.1 g/dl (6.4-8.2)
[2023-11-15 20:37] LABS: MAGNESIUM 1.8 mg/dL (1.8-2.4)
[2023-11-15] MEDS ORDERED: ALBUTEROL SO4 0.083% IH SOL 2.5 MG/3 ML VIAL.NEB. NEB ONE (21:36)
[2023-11-15] MEDS: ALBUTEROL SO4 0.083% IH SOL 2.5 MG/3 ML VIAL.NEB. NEB SCH (23:39)
[2023-11-16] MEDS ORDERED: methylPREDNISolone NA SUCC 40 MG/1 ML VIAL IVPUSH SCH ×2 (03:50→10:00)
[2023-11-16] MEDS: ALBUTEROL SO4 0.083% IH SOL 2.5 MG/3 ML VIAL.NEB. NEB SCH (07:12)
[2023-11-16] MEDS ORDERED: ALBUTEROL SO4 0.083% IH SOL 2.5 MG/3 ML VIAL.NEB. NEB ONE (07:15)
[2023-11-16] MEDS: ALBUTEROL SO4 0.083% IH SOL 2.5 MG/3 ML VIAL.NEB. NEB PRN (07:25)
[2023-11-16 07:38] LABS: BASO % 0.2 % (0-2.0); HEMATOCRIT 36.1 % (32.4-45.2); HEMOGLOBIN 12.3 GM/dL (10.7-15.3); LYMPH % 8.9 % (8-40); MEAN CELL VOLUME 91.3 fl (80-96); MONO % 3.1 % (3.8-10.2); NEUT % 87.8 % (42.8-82.8); PLATELET COUNT 249 10^3/uL (134-434); RBC 3.95 M/mm3 (3.60-5.2); RDW 13.8 % (11.6-15.6); WHITE BLOOD COUNT 11.7 K/mm3 (4.0-10.0)
[2023-11-16 07:53] LABS: POTASSIUM 4.2 mmol/L (3.5-5.1)
[2023-11-16 08:02] LABS: BLOOD UREA NITROGEN 5.7 mg/dL (7-18)
[2023-11-16 08:06] LABS: ALBUMIN 2.9 g/dl (3.4-5.0); CALCIUM 9.2 mg/dL (8.5-10.1); CREATININE 0.5 mg/dL (0.55-1.3)
[2023-11-16 08:07] LABS: MAGNESIUM 1.8 mg/dL (1.8-2.4)
[2023-11-16 08:10] LABS: BILIRUBIN,TOTAL 0.3 mg/dL (0.2-1); TOT PROT 6.8 g/dl (6.4-8.2)
[2023-11-16] MEDS ORDERED: ENOXAPARIN NA (PORCINE) 40 MG/0.4 ML DISP.SYRIN SQ ONE (11:33)
[2023-11-16] MEDS ORDERED: methylPREDNISolone NA SUCC 40 MG/1 ML VIAL ONE (11:33)
[2023-11-16] MEDS: PRENATAL VITAMINS W/ FOLIC ACID TABLET (FP) PO SCH (11:40)
[2023-11-16] MEDS: methylPREDNISolone NA SUCC 40 MG/1 ML VIAL IVPUSH SCH (11:40)
[2023-11-16] MEDS: ENOXAPARIN NA (PORCINE) 40 MG/0.4 ML DISP.SYRIN SQ SCH (11:40)
[2023-11-16] MEDS: BUDESONIDE/FORMETEROL FUMARATE 80/4.5 mcg INHALER IH SCH (11:41)
[2023-11-16] MEDS ORDERED: AZITHROMYCIN IVPB 500 MG/250 ML BAG IVPB ONE (13:09)
[2023-11-16] MEDS: AZITHROMYCIN IVPB 500 MG in DEXTROSE 5%-WATER - 250 ML IVPB ONE (13:16)
[2023-11-16] MEDS: ALBUTEROL SO4 2.5/IPRATROPIUM 0.5 INH SOL 3 ML VIAL.NEB. NEB SCH (20:05)
[2023-11-17 09:21] LABS: BASO % 0.2 % (0-2.0); EOS % 0.4 % (0-4.5); HEMATOCRIT 36.6 % (32.4-45.2); HEMOGLOBIN 12.4 GM/dL (10.7-15.3); LYMPH % 24.9 % (8-40); MCH 31.1 pg (25.7-33.7); MCHC 33.9 g/dl (32.0-36.0); MEAN CELL VOLUME 91.7 fl (80-96); MEAN PLT VOLUME 7.7 fl (7.5-11.1); MONO % 5.6 % (3.8-10.2); NEUT % 68.9 % (42.8-82.8); PLATELET COUNT 243 10^3/uL (134-434); RBC 3.99 M/mm3 (3.60-5.2); RDW 13.9 % (11.6-15.6); WHITE BLOOD COUNT 11.7 K/mm3 (4.0-10.0)
[2023-11-17 09:43] LABS: POTASSIUM 3.5 mmol/L (3.5-5.1)
[2023-11-17 09:50] LABS: CREATININE 0.6 mg/dL (0.55-1.3)
[2023-11-17 09:53] LABS: ALBUMIN 2.8 g/dl (3.4-5.0)
[2023-11-17 09:54] LABS: CALCIUM 8.9 mg/dL (8.5-10.1); MAGNESIUM 1.8 mg/dL (1.8-2.4)
[2023-11-17 09:55] LABS: BILIRUBIN,TOTAL 0.2 mg/dL (0.2-1); TOT PROT 6.6 g/dl (6.4-8.2)
[2023-11-17] MEDS: AZITHROMYCIN IVPB 250 MG in DEXTROSE 5%-WATER - 250 ML IVPB SCH (10:22)
[2023-11-18 06:19] LABS: PH,URINE 5.5 (5.0-8.0); URINE APPEARANCE CLEAR; URINE BILIRUBIN NEGATIVE (NEGATIVE); URINE COLOR YELLOW; URINE GLUCOSE (UA) NEGATIVE (NEGATIVE); URINE KETONE NEGATIVE (NEGATIVE); URINE LEUK ESTERASE NEGATIVE (NEGATIVE); URINE NITRITE NEGATIVE (NEGATIVE); URINE PROTEIN TRACE (NEGATIVE)
[2023-11-18 09:36] LABS: BASO % 0.1 % (0-2.0); EOS % 0.2 % (0-4.5); HEMATOCRIT 36.4 % (32.4-45.2); LYMPH % 23.7 % (8-40); MCH 30.2 pg (25.7-33.7); MEAN CELL VOLUME 91.6 fl (80-96); MEAN PLT VOLUME 7.9 fl (7.5-11.1); MONO % 4.9 % (3.8-10.2); NEUT % 71.1 % (42.8-82.8); PLATELET COUNT 231 10^3/uL (134-434); RBC 3.97 M/mm3 (3.60-5.2); WHITE BLOOD COUNT 13.4 K/mm3 (4.0-10.0)
[2023-11-18 10:01] LABS: POTASSIUM 3.4 mmol/L (3.5-5.1)
[2023-11-18 10:05] LABS: ALBUMIN 2.7 g/dl (3.4-5.0); BLOOD UREA NITROGEN 7.9 mg/dL (7-18); CALCIUM 8.5 mg/dL (8.5-10.1)
[2023-11-18 10:06] LABS: MAGNESIUM 1.8 mg/dL (1.8-2.4)
[2023-11-18 10:08] LABS: CREATININE 0.5 mg/dL (0.55-1.3)
[2023-11-18 10:10] LABS: BILIRUBIN,TOTAL 0.2 mg/dL (0.2-1); TOT PROT 6.2 g/dl (6.4-8.2)
[2023-11-18] MEDS: POTASSIUM CHLORIDE TABS 20 MEQ TABLET.ER (FP) PO ONE (12:09)
[2023-11-18] MEDS: methylPREDNISolone NA SUCC 40 MG/1 ML VIAL IVPUSH SCH (18:19)
[2023-11-18 21:30] VITALS: RESP 18
[2023-11-19 09:04] LABS: BASO % 0.1 % (0-2.0); HEMATOCRIT 35.4 % (32.4-45.2); HEMOGLOBIN 11.8 GM/dL (10.7-15.3); MCH 30.9 pg (25.7-33.7); MCHC 33.4 g/dl (32.0-36.0); MEAN CELL VOLUME 92.5 fl (80-96); MEAN PLT VOLUME 7.9 fl (7.5-11.1); MONO % 3.1 % (3.8-10.2); NEUT % 85.8 % (42.8-82.8); PLATELET COUNT 242 10^3/uL (134-434); RBC 3.83 M/mm3 (3.60-5.2); RDW 13.8 % (11.6-15.6); WHITE BLOOD COUNT 18.2 K/mm3 (4.0-10.0)
[2023-11-19 09:08] LABS: BLOOD UREA NITROGEN 7.5 mg/dL (7-18); CALCIUM 9.2 mg/dL (8.5-10.1); MAGNESIUM 1.8 mg/dL (1.8-2.4)
[2023-11-19 09:09] LABS: ALBUMIN 2.8 g/dl (3.4-5.0)
[2023-11-19 09:11] LABS: BILIRUBIN,TOTAL 0.2 mg/dL (0.2-1); CREATININE 0.6 mg/dL (0.55-1.3)
[2023-11-19 09:13] LABS: TOT PROT 6.5 g/dl (6.4-8.2)
[2023-11-19] MEDS ORDERED: BUDESONIDE/FORMETEROL FUMARATE 160/4.5 mcg INHALER IH SCH ×2 (10:30→22:00)
[2023-11-19] MEDS: ALBUTEROL SO4 0.083% IH SOL 2.5 MG/3 ML VIAL.NEB. NEB PRN (11:10)
[2023-11-19] MEDS: methylPREDNISolone NA SUCC 40 MG/1 ML VIAL IVPUSH SCH (17:08)
[2023-11-19] MEDS: BUDESONIDE/FORMETEROL FUMARATE 160/4.5 mcg INHALER IH SCH (19:27)
[2023-11-20 08:32] LABS: HEMATOCRIT 34.8 % (32.4-45.2); HEMOGLOBIN 11.6 GM/dL (10.7-15.3); MCH 30.6 pg (25.7-33.7); MCHC 33.4 g/dl (32.0-36.0); MEAN CELL VOLUME 91.9 fl (80-96); MEAN PLT VOLUME 7.9 fl (7.5-11.1); PLATELET COUNT 244 10^3/uL (134-434); RBC 3.79 M/mm3 (3.60-5.2); RDW 14.1 % (11.6-15.6); WHITE BLOOD COUNT 16.8 K/mm3 (4.0-10.0)
[2023-11-20 08:35] LABS: BLOOD UREA NITROGEN 11.4 mg/dL (7-18); CALCIUM 8.8 mg/dL (8.5-10.1)
[2023-11-20 08:36] LABS: ALBUMIN 2.7 g/dl (3.4-5.0); MAGNESIUM 1.9 mg/dL (1.8-2.4)
[2023-11-20 08:38] LABS: CREATININE 0.6 mg/dL (0.55-1.3)
[2023-11-20 08:40] LABS: BILIRUBIN,TOTAL 0.2 mg/dL (0.2-1); TOT PROT 6.3 g/dl (6.4-8.2)
[2023-11-20] MEDS: LIDOCAINE 4% PATCH TP SCH (10:17)
[2023-11-20 10:22] LABS: ANISOCYTOSIS 0; HELMET CELLS 0; HOWELL-JOLLY BODIES 0; MACROCYTOSIS 0; OVALOCYTE 0; ROULEAU 0; SICKELED CELLS 0; TARGET CELLS 0; TEAR DROP CELLS 0; TOXIC GRANULATION 0
[2023-11-20] MEDS: LIDOCAINE PATCH REMOVAL MC SCH (21:37)
[2023-11-21 08:51] LABS: HEMATOCRIT 35.4 % (32.4-45.2); HEMOGLOBIN 11.6 GM/dL (10.7-15.3); MCH 30.4 pg (25.7-33.7); MCHC 32.9 g/dl (32.0-36.0); MEAN CELL VOLUME 92.5 fl (80-96); MEAN PLT VOLUME 7.8 fl (7.5-11.1); PLATELET COUNT 245 10^3/uL (134-434); RBC 3.83 M/mm3 (3.60-5.2); RDW 14.1 % (11.6-15.6); WHITE BLOOD COUNT 17.5 K/mm3 (4.0-10.0)
[2023-11-21 09:06] LABS: POTASSIUM 3.5 mmol/L (3.5-5.1)
[2023-11-21 09:09] LABS: ALBUMIN 2.6 g/dl (3.4-5.0); BLOOD UREA NITROGEN 10.3 mg/dL (7-18); CALCIUM 8.4 mg/dL (8.5-10.1)
[2023-11-21 09:10] LABS: MAGNESIUM 1.8 mg/dL (1.8-2.4)
[2023-11-21 09:12] LABS: CREATININE 0.5 mg/dL (0.55-1.3)
[2023-11-21 09:14] LABS: BILIRUBIN,TOTAL 0.2 mg/dL (0.2-1); TOT PROT 5.9 g/dl (6.4-8.2)
[2023-11-21] MEDS: predniSONE 20 MG TABLET (UD) PO SCH (10:41)
[2023-11-21 13:04] LABS: ANISOCYTOSIS 0; HELMET CELLS 0; HOWELL-JOLLY BODIES 0; MACROCYTOSIS 0; OVALOCYTE 0; ROULEAU 0; SICKELED CELLS 0; TARGET CELLS 0; TEAR DROP CELLS 0; TOXIC GRANULATION 0
[2023-11-21 15:09] VITALS: BP 137/86; PULSE 127; TEMP 98.2
== END 2023-11-21 18:47 | disposition home or self-care (01) | DRG 566 ==
LOC: JER 16:45 → JERBED 21:33 → J7W 11-16 15:40
PROVIDERS: ADMIT Internal Medicine; ATTEND Nurse Practitioner
DX: O99.512 Diseases of the respiratory system complicating pregnancy, second trimester (principal); J45.41 Moderate persistent asthma with (acute) exacerbation; J20.9 Acute bronchitis, unspecified; D72.829 Elevated white blood cell count, unspecified; Z3A.26 26 weeks gestation of pregnancy
CPT/HCPCS: 0241U-QW; 36415; 59025; 76801-TC; 76815; 80053; 81003; 83735; 84100; 85025; 93005; 93010; 94010; 94150; 94640; 99291